=== PATIENT | male | born 1965 | race Two or more races ===

== ENCOUNTER 2021-02-19 16:44 | Emergency (ER) | payer OTHER ==
[~2021-02-19] VITALS: Ht 170.2 cm; Wt 90.8 kg
--- NOTE | 2021-02-19 18:38 | NUR ---
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
--- NOTE | 2021-02-19 18:54 | NUR ---
REPORT TO SOUMYA CRUZ.
[2021-02-19] MEDS ORDERED: ALBUTEROL/IPRATROPIUM 2.5MG/0.5MG, 3 ML ONE (19:19)
[2021-02-19] MEDS ORDERED: ALBUTEROL SULFATE 2.5 MG/3 ML ONE (19:20)
[2021-02-19] MEDS ORDERED: ALBUTEROL/IPRATROPIUM 2.5MG/0.5MG, 3 ML NEB ONE (19:30)
[2021-02-19] MEDS ORDERED: ALBUTEROL SULFATE 2.5 MG/3 ML NPPB ONE (19:30)
--- NOTE | 2021-02-19 19:55 | NUR ---
PT MEDICATED PER RACHEL RESENDEZ
[2021-02-19 20:19] VITALS: BP 144/81
--- NOTE | 2021-02-19 20:20 | NUR ---
PT REPORTS FEELING BETTER AFTER NEB TX
--- NOTE | 2021-02-19 21:19 | NUR ---
Patient/Caregiver given discharge instructions and they have confirmed that they understand the instructions. Patient ambulatory with steady gait. NAD, all questions answered appropriately, denies additional needs at this time. No personal belongings left in room after discharge.
== END 2021-02-19 21:50 | disposition home or self-care (01) ==
LOC: ED 21:20
DX: J44.0 Chronic obstructive pulmonary disease with (acute) lower respiratory infection (principal); J98.01 Acute bronchospasm
CPT/HCPCS: 94640; 99283; J7512; J7613